=== PATIENT | male | born 1975 | race Caucasian/White ===

== ENCOUNTER 2023-04-22 15:17 | Outpatient (REF) | payer OTHER, SELFPAY ==
--- NOTE | ~2023-04-22 | XR_ITS ---
EXAMINATION: XR LUMBOSACRAL SPINE CLINICAL INFORMATION: Low back pain. COMPARISON: None available. TECHNIQUE: Three views of the lumbosacral spine. FINDINGS: Mild rightward curvature of the mid to lower lumbar spine. Rounded pelvic calcifications are likely vascular. Facet arthritis in the lower lumbar spine. Straightening of the normal lumbar lordosis. Mild multilevel lumbar spondylosis with mild loss of disc space height at L4-L5. XR/XR lumbar spine 2-3V IMPRESSION: Mild multilevel lumbar spondylosis with mild loss of disc space height at L4-L5.
== END 2023-04-22 15:18 | disposition home or self-care (01) ==
LOC: HO.XRAY 15:17
PROVIDERS: PCP Registered Nurse; Visit Provider Registered Nurse
DX: M54.50 Low back pain, unspecified (principal)
CPT/HCPCS: 72100

== ENCOUNTER 2023-07-17 10:02 | Outpatient (REF) | payer OTHER, SELFPAY | END 2023-07-17 10:03 | disposition home or self-care (01) | LOC: HO.LAB 10:02 | PROVIDERS: Visit Provider Registered Nurse | DX: Z13.89 Encounter for screening for other disorder (principal) ==